=== PATIENT | male | born 1940 | race Caucasian/White ===

== ENCOUNTER 2023-05-14 13:10 | Outpatient (CLI) | payer MEDICARE, BC, SELFPAY ==
--- NOTE | 2023-05-14 14:36 | W.ANESCHARGE ---
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
--- NOTE | 2023-05-14 15:11 | W.ANESCHARGE ---
Anesthesia Charges Start Date/Time Anesthesia Start Date: 05/14/23 Anesthesia Start Time: 14:12 Stop Date/Time Anesthesia Stop Date: 05/14/23 Anesthesia Stop Time: 14:37 Summary Extremes of Age - Over 70 or under 1: MDA
== END 2023-05-14 13:11 | disposition home or self-care (01) ==
LOC: OP CLINIC 13:13
PROVIDERS: PCP Family Medicine; Visit Provider Internal Medicine Gastroenterology
DX: Z12.11 Encounter for screening for malignant neoplasm of colon (principal); K63.5 Polyp of colon; K57.30 Diverticulosis of large intestine without perforation or abscess without bleeding; Z86.010 Personal history of colon polyps
CPT/HCPCS: 00811; 45385; 88305; 99100; J2704

== ENCOUNTER 2023-08-27 06:20 | Day surgery (SDC) | payer MEDICARE, BC, SELFPAY ==
--- OUTSIDE RECORDS SUMMARY | 2023-08-27 06:24 | XMS_ITS | Clinical Summary ---
Author Name Unknown Organization [employer] [facility] Address [place], [place] [address] Care Team Providers Care Shorthand Reporter Name Role Phone Cyrus Guevara MD Primary Care Provider [phone] Allergies No known active allergies Medications Medication Sig Dispensed Refills Start Date End Date Status aspirin enteric coated 81 mg tablet Three tabs daily 0 3 Active acetaminophen SR (Tylenol 8 Hour) 650 mg Extended-Release tablet Take 1 Tablet (650 mg) by mouth every 8 hours if needed. Max acetaminophen dose: 4000mg in 24 hrs. 0 1 Active allopurinoL (ZYLOPRIM) 100 mg tabletIndications:C hronic gout of foot, unspecified cause, unspecified laterality Take 2 Tablets (200 mg) by mouth once daily. 180 Tablet 3 3 Active carvediloL (COREG) 3.125 mg tabletIndications:O ther cardiomyopathy (HC) Take 3 Tablets (9.375 mg) by mouth two times daily with meals. 540 Tablet 3 3 Active lisinopriL (PRINIVIL; ZESTRIL) 2.5 mg tabletIndications:E ssential hypertension Take 1 Tablet (2.5 mg) by mouth once daily. 90 Tablet 3 3 Active simvastatin (ZOCOR) 20 mg tabletIndications:O ther cardiomyopathy (HC) Take 1 Tablet (20 mg) by mouth at bedtime. 90 Tablet 3 3 Active ferrous sulfate, 65 mg elemental, tabletIndications:O ther iron deficiency anemia Take 1 Tablet (325 mg) by mouth once daily with a meal. Take with supper. 90 Tablet 3 3 Active tamsulosin (FLOMAX) 0.4 mg capsuleIndications: BPH without urinary obstruction Take 2 Capsules (0.8 mg) by mouth once daily after a meal. 180 Capsule 3 3 Active polyethylene glycol-electrolyte (GOLYTELY) 236-22.74-6.74 -5.86 gram suspensionIndicatio ns:Encounter for screening colonoscopy Drink 2 liters the day before the procedure and 2 liters 6 hours prior to procedure 4000 mL 0 3 07/31/20 23 Discontinu ed(*Patien t states no longer taking) Active Problems Problem Noted Date Diagnosed Date BPH without urinary obstruction 07/12/2023 ICD (implantable cardioverte r-defibrillator) battery depletion with elective replacement indicator status beginning on 02/28/2021 04/12/2021 S/P dual chamber biventricul ar implantable cardioverter defibrillator generator change with downgrade to dual chamber biventricular permanent pacemaker on 04/12/2021 04/12/2021 Nephrolithiasis 01/11/2015 Overview: Asymptomatic, incidentally noted on CT scabn. Diverticulosis of sigmoid colon 01/11/2015 Chronic systolic CHF (conges tive heart failure), NYHA class 2 09/04/2013 Overview: Due for an echocardiogram in 07/2024. 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 As of 12/20/2022 he reports he is completely recovered. His strength and everything is back to normal for him. Gout, unspecified 04/07/2010 Colon polyp 01/11/2010 Overview: Colonoscopy 12/2009 polyp repeat in 3 years Colonoscopy 01/2013 normal repeat in 5 years Colonoscopy 02/2018 polyp, repeat in 5 years Colonoscopy 05/2023 3-TA, no follow up given age Unspecified essential hypertension 05/08/2007 Resolved Problems Problem Noted Date Diagnosed Date Resolved Date Other abnormal glucose 05/08/200710/27 Encounters Date Type Department Care Team Description 07/31/2023 10:00 AM WEIGHT REDUCTION SPECIALIST Preop Visit [facility] [address] [place] [address] Cyrus Guevara MD Preoperative Exam (1st MPJ fusion (left)/Hammertoe repair 2nd toe (left)/Dr. Britton/NHOS 08/27/2023) 07/31/2023 9:15 AM WEIGHT REDUCTION SPECIALIST Ancillary Procedure [facility] [address] [place] [address] 07/31/2023 Travel 07/25/2023 Telephone [facility] [id number] [place] [id number] Fermin Atkinson MD Results 07/12/2023 Telephone [facility] [address] [place] [address] Cyrus Guevara MD Medication Management (QUESTION ) 07/10/2023 Refill [facility] [address] [place] [address] Cyrus Guevara MD Refill Request (Tamsulosin) 06/20/2023 10:15 AM WEIGHT REDUCTION SPECIALIST Office Visit [facility] [address] [place] [address] Kilo Britton DPAndree Follow Up (Follow up left toe pain) 06/20/2023 Travel from Last 3 Months Immunizations Name Administration Dates Next Due AMB Influenza, IIV3 (Age >=3 years)(Flu Clinic Only) 05/31/2010,06/03/2008 Amb Influenza, Inact (High-d ose) (Flu Clinic Only) 05/11/2014 Amb Influenza, Inactivated A IIV4 (Age 65+ Years) Preserv Free 05/13/2020 COVID-19 Vaccine Spikevax (M oderna 50mcg/0.5mL) 12YO+ [id number] Formula PF 06/05/2023 COVID-19 vaccine (Confluent (Oblix / [employer])Bio NTech 30mcg/0.3mL) 12YO+ BIVALENT PF, MDV 05/03/2022 COVID-19 vaccine ([employer]Bio NTech 30mcg/0.3mL) 12YO+ JENNY-SUCROSE PF, MDV 01/28/2022 COVID-19 vaccine (Confluent (Oblix / Oracle)Bio NTech 30mcg/0.3mL) PF, MDV 06/09/2021,10/09/2020,09/18/2020 Influenza, High-dose Inactivated 05/02/2016,03/2015,05/11/2014 Influenza, IIV3 (Age 6-35 mos) 05/16/2011 Influenza, IIV3 (Age >=3 years) 05/13/20 13,05/07/2012,05/16/2011,2009,05/25/2009,06/03/2008,07/06/2007,1 09/01/2005 Influenza, Inactivated AIIV4 (Age 65+ Years) Preserv Free 04/27/2023,05/03/2022,04/22/2021 Influenza, Inactivated IIV3 (Age 65+ Years) Preserv Free 04/24/2019,05/09/2018,05/09/2017 Pneumococcal Poly,23-Valent (Pneumovax) 07/02/2006 Pneumococcal conj 13-Valent (Prevnar 13) 02/18/2016 Td (Age >=7 Years) 10/13/1996 Td, Preservative Free (age > = 7 Years) 07/11/2007 Tdap 10/31/2022,05/08/2012 Zoster (Shingrix-RZV, recombinant) 01/07/2021, Zoster (Zostavax-ZVL, live) 02/25/2017, 6 Family History Medical History Relation Name Comments Cancer-colon Brother age 74 Other Father at 89 old age Heart Disease Mother at 82 Diabetes Other none Relation Name Status Comments Brother Father (Age 89) Mother (Age 82) Other Social History Tobacco Use Types Packs/Day Years Used Date Smoking Tobacco: Former Smokeless Tobacco: Former Chew Quit: 09/04/2013 Tobacco Cessation:Counseling Given: Yes Alcohol Use Standard Drinks/Week Comments Not Currently 0 (1 standard drink = 0.6 oz pur e alcohol) PHQ-2 Answer Date Recorded PHQ-2 TOTAL SCORE 0 12/20/2022 Social Connections Answer Date Recorded Frequency of Communication with Friends and Fami ly Not on file 03/13/2023 Financial Resource Strain Answer Date R ecorded Difficulty of Paying Living Expenses 3 03/07/2022 Difficulty of Paying Living Expenses Not on file 03/07/2022 Food Insecurity Answer Date Recorded Worried About Running Out of Food in the Last Ye ar 1 03/07/2022 Transportation Needs Answer Date Record ed Lack of Transportation (Medical) 1 03/07/2022 Housing Stability Answer Date Recorded Unable to Pay for Housing in the Last Year 1 03/07/2022 Sex and Gender Information Value Date Recorded Sex Assigned at Not on file Gender Identity Not on file Sexual Orientation Not on file Obstetrics History Last Filed Vital Signs Vital Sign Reading Time Taken Comments Blood Pressure 109/64 07/31/2023 9:31 AM WEIGHT REDUCTION SPECIALIST Pulse 61 07/31/2023 9:31 AM WEIGHT REDUCTION SPECIALIST Temperature 36.7 ??C (98 ??F) 07/31/2023 9:31 AM WEIGHT REDUCTION SPECIALIST Respiratory Rate 18 04/12/2021 1:30 PM CDT Oxygen Saturation 97% 07/31/2023 9:31 AM WEIGHT REDUCTION SPECIALIST Inhaled Oxygen Concentration - - Weight 79.2 kg (174 lb 11.2 oz) 07/31/2023 9:31 AM WEIGHT REDUCTION SPECIALIST Height 160 cm (5' 3) 07/31/2023 9:31 AM WEIGHT REDUCTION SPECIALIST Body Mass Index 30.95 07/31/2023 9:31 AM WEIGHT REDUCTION SPECIALIST Plan of Treatment Upcoming Encounters Date Type Department Care Team (Late st Contact Info) Description 08/27/2023 9:30 AM WEIGHT REDUCTION SPECIALIST Office Visit [facility] [address] [place] [phone] Kilo Britton, JAVI [address] [place] [address] 08/29/2023 10:00 AM WEIGHT REDUCTION SPECIALIST Office Visit [facility] [address] [place] [address] Kilo Britton DPM [address] [place] [address] 09/12/2023 10:00 AM WEIGHT REDUCTION SPECIALIST Office Visit [facility] [address] [place] [address] Kilo Britton DPM [address] [place] [address] 10/10/2023 10:00 AM WEIGHT REDUCTION SPECIALIST Office Visit [facility] [place] [address] Kilo Britton DPM [address] [place] [address] 11/22/2023 Cardiac Device Check [facility] [phone] 12/19/2023 8:00 AM CDT Orders Only [facility] [place] [address] Adelita, Joycelyn 12/26/2023 8:00 AM CDT Office Visit [facility] [place] [address] Cyrus Guevara MD [address] [place] [address] Health Maintenance Due Date Last Done Comments Medicare Wellness for age 65+ 11/07/2022, 10/27/2020, 03/14/2017, Additional history exists Depression screening for age 12+ 12/21/2023 12/20/2022, 12/19/2022, 11/07/2021, Additional history exists BMI (ht and wt on same day) for age 18+ 07/31/2024 07/31/2023, 05/22/2022, 11/07/2021, Additional history exists Tetanus booster 10/31/2032 10/31/2022, 04/14, 07/11/2007, Additional history exists Pneumococcal series for age 65+ Completed 6, 07/02/2006 Zoster (shingles) series for age 50+ Completed 01/07/2021, 10/27/2020, 02/25/2017, Additional history exists Tdap Completed 10/31/2022, 05/08/2012 Influenza for age 65+ Completed 04/27/2023 , 05/03/2022, 04/22/2021, Additional history exists COVID-19 vaccine series Completed 06/05/20, 05/03/2022, 01/28/2022, Additional history exists Medical Devices Implanted Type Area Utility Operator Yarn Device Identifier Shelf Expiration Date Model / Serial / Lot Chemical Dependency Counselor-D-09/04/2013 Implanted:2013 by Lucian Sequeira MD (Quantity not on file) ONCOLOGY NURSE-D [employer] [id number] / [id number] / Procedures Procedure Name Priority Date/Time Associated Diagnosis Comments CBC WITH AUTO DIFFERENTIAL Routine 07/31/2023 10:42 AM WEIGHT REDUCTION SPECIALIST Preoperative general physical examination CBC WITH AUTO DIFFERENTIAL Routine 07/31/2023 10:42 AM WEIGHT REDUCTION SPECIALIST Preoperative general physical examination BASIC METABOLIC PANEL Routine 07/31/2023 10:42 AM WEIGHT REDUCTION SPECIALIST Chronic systolic CHF (congestive heart failure), NYHA class 2 (HC) XR FOOT 3 VIEWS LEFT Routine 07/31/2023 9:20 AM WEIGHT REDUCTION SPECIALIST 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 from Last 3 Months Results * (ABNORMAL) CBC WITH AUTO DIFFERENTIAL (07/31/2023 10:42 AM WEIGHT REDUCTION SPECIALIST) Pathologist [facility] WHITE BLOOD COUNT 7.5 4.5 - 11.0 thou/cu mm 07/31/2023 10:47 AM WEIGHT REDUCTION SPECIALIST [facility] RED BLOOD COUNT 3.54(L) 4.30 - 5.90 mil/cu mm 07/31/2023 10:47 AM [facility] HEMOGLOBIN 11.6(L) 13.5 - 17.5 g/dL 07/31/2023 10:47 AM [facility] HEMATOCRIT 36.0(L) 37.0 - 53.0 % 07/31/2023 10:47 AM [facility] MCV 102(H) 80 - 100 fL 07/31/2023 10:47 AM [facility] MCH 32.8 26.0 - 34.0 pg 07/31/2023 10:47 AM [facility] MCHC 32.2 32.0 - 36.0 g/dL 07/31/2023 10:47 AM [facility] RDW 12.6 11.5 - 15.5 % 07/31/2023 10:47 AM [facility] PLATELET COUNT 247 140 - 440 thou/cu mm 07/31/2023 10:47 AM [facility] MPV 8.9 6.5 - 11.0 fL 07/31/2023 10:47 AM [facility] % NEUT 66.2 % 07/31/2023 10:47 AM [facility] % LYMPH 19.6 % 07/31/2023 10:47 AM [facility] % MONO 7.3 % 07/31/2023 10:47 AM [facility] % EOS 6.5 % 07/31/2023 10:47 AM [facility] % BASO 0.4 % 07/31/2023 10:47 AM [facility] ABSOLUTE NEUTROPHILS 5.0 1.7 - 7.0 thou/cu mm 07/31/2023 10:47 AM [facility] ABSOLUTE LYMPHOCYTES 1.5 0.9 - 2.9 thou/cu mm 07/31/2023 10:47 AM [facility] ABSOLUTE MONOCYTES 0.6 <0.9 thou/cu mm 07/31/2023 10:47 AM [facility] ABSOLUTE EOSINOPHILS 0.5(H) <0.5 thou/cu mm 07/31/2023 10:47 AM [facility] ABSOLUTE BASOPHILS 0.0 <0.3 thou/cu mm 07/31/2023 10:47 AM [facility] Blood BLOOD SPECIMEN / Unknown Venipuncture / Unknown 07/31/2023 10:42 AM WEIGHT REDUCTION SPECIALIST 07/31/2023 10:42 AM WEIGHT REDUCTION SPECIALIST Cyrus Guevara MD HEMATOLOGY [facility] [address] [place] [address], [place] [phone] * (ABNORMAL) BASIC METABOLIC PANEL (07/31/2023 10:42 AM WEIGHT REDUCTION SPECIALIST) SODIUM 142 136 - 145 mmol/L 07/31/2023 9:08 PM [facility] POTASSIUM 4.9 3.5 - 5.1 mmol/L 07/31/2023 9:08 PM [facility] CHLORIDE 109(H) 98 - 107 mmol/L 07/31/2023 9:08 PM [facility] CO2,TOTAL 26 22 - 29 mmol/L 07/31/2023 9:08 PM [facility] ANION GAP 7 5 - 18 07/31/2023 9:08 PM [facility] GLUCOSE 108(H) 70 - 99 mg/dL 07/31/2023 9:08 PM [facility] CALCIUM 9.5 8.8 - 10.2 mg/dL 07/31/2023 9:08 PM [facility] BUN 25(H) 8 - 23 mg/dL 07/31/2023 9:08 PM [facility] CREATININE 1.52(H) 0.70 - 1.20 mg/dL 07/31/2023 9:08 PM [facility] BUN/CREAT RATIO 16 10 - 20 9:08 PM [facility] eGFR 45(L) >90 mL/min/1.7 3m2 07/31/2023 9:08 PM [facility] Comment:As of 2021, eG FR is calculated by the CKD-EPI creatinine equation without race adjustment. ??eGFR can be influenced by muscle mass, exercise, and diet. ??The reported eGFR is an estimation only and is only applicable if the renal function is stable. Blood BLOOD SPECIMEN / Unknown Venipuncture / Unknown 07/31/2023 10:42 AM WEIGHT REDUCTION SPECIALIST 07/31/2023 10:42 AM WEIGHT REDUCTION SPECIALIST Cyrus Guevara MD CHEMISTRY [facility] [address] [place] [address], [place] * XR FOOT 3 VIEWS LEFT (07/31/2023 9:20 AM WEIGHT REDUCTION SPECIALIST) Anatomical Region Laterality Modality FEET, FOOT L Computed Radiogr aphy 07/31/2023 10:3 8 AM WEIGHT REDUCTION SPECIALIST Narrative 07/31/2023 10:38 AM WEIGHT REDUCTION SPECIALIST For Patients: ??As a result of the Cures Act, medical imaging exams and procedure reports are released immediately into your electronic medical record. ??You may view this report before your referring provider. ??If you have questions, please contact your health care provider. INDICATION: 83 year-old male. Hallux valgus of the left foot. 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 TECHNIQUE: Four views of the left foot. FINDINGS: Hallux valgus deformity left 1st metatarsal head with bunion deformity. The 1st and 2nd toes appear to cross over each other and this may be a chronic position. Please correlate clinically. No acute fracture dislocation. No evidence for erosive change. No significant calcaneal spurring. IMPRESSION : Bunion deformity and hallux valgus deformity 1st MTP joint. 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 Dictated by Schuyler Davalos MD @ Jul 31 2023 10:38AM (Electronically Signed) ?? Procedure Note Schuyler Davalos MD - 07/31/2023 For Patients: As a result of the Cures Act, medical imagingexams and procedure reports are released immediately into your electronicmedical record. You may view this report before your referring provider.If you have questions, please contact your health care provider. INDICATION: 83 year-old male. Hallux valgus of the left foot. Crossover toe deformityof the left foot. TECHNIQUE: Four views of the left foot. FINDINGS: Hallux valgus deformity left 1st metatarsal head with bunion deformity.The 1st and 2nd toes appear to cross over each other and this may be achronic position. Please correlate clinically. No acute fracturedislocation. No evidence for erosive change. No significant calcanealspurring. IMPRESSION : Bunion deformity and hallux valgus deformity 1st MTP joint. Crossoverdeformity of the 1st and 2nd toes. Dictated by Schuyler Davalos MD @ Jul 31 2023 10:38AM (Electronically Signed) Kilo Britton DPM GENERAL IMAGING from Last 3 Months Advance Directives Latest Code Status on File Code Status Date Activated Date Inactivated Comments Full Code 04/12/2021 10:18 AM 04/12/2021 8:03 PM Question Answer Comments Code Status Discussion: Not Discussed Code Status History Code Status Date Activated Date Inactivated Comments Full Code 09/04/2013 9:54 AM 09/05/2013 1:12 PM Care Teams Shorthand Reporter Relationship Specialty Start Date End Date [place] [address] PCP - General Family Practice 08/01/21
[2023-08-27] MEDS: LACTATED RINGERS 1000 ML 1,000 ML 100 ML IV (06:45)
[2023-08-27] MEDS: SODIUM CHLORIDE 0.9 % (FLUSH) 10 ML SYRINGE IVF (06:50)
[2023-08-27 06:54] VITALS: BP 122/57; PULSE 59; RESP 16; TEMP 36.1; O2SAT 96
[2023-08-27 06:56] VITALS: BMI 30.9
--- NOTE | 2023-08-27 07:15 | CRLHL7_ITS ---
For Patients: As a result of the Cures Act, medical imaging exams and procedure reports are released immediately into your electronic medical record. You may view this report before your referring provider. If you have questions, please contact your health care provider. INDICATION: Left foot ORIF. TECHNIQUE: Three spot images of the great toe submitted. 6.6 seconds fluoro time provided. FINDINGS: Images demonstrate 1st TMT fusion with plate and screws. Dictated by Xavi Mejia MD @ 08/28/2023 10:02:58 AM (Electronically Signed)
[2023-08-27] MEDS: BUPIVACAINE 0.5% 30 ML INJECTION (07:30)
[2023-08-27] MEDS: CEFAZOLIN 2 GM INJ IVP (07:34)
[2023-08-27 09:10] VITALS: BP 101/56; PULSE 66; RESP 16; TEMP 36.4; O2SAT 97
--- NOTE | 2023-08-27 09:12 | P.ANES_ITS ---
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
--- NOTE | 2023-08-27 09:23 | W.ANESCHARGE ---
Anesthesia Charges Start Date/Time Anesthesia Start Date: 08/27/23 Anesthesia Start Time: 07:20 Stop Date/Time Anesthesia Stop Date: 08/27/23 Anesthesia Stop Time: 09:10 Summary Extremes of Age - Over 70 or under 1: MDA
[2023-08-27 09:30] VITALS: BP 129/52; PULSE 60; RESP 16; O2SAT 99
[2023-08-27 09:45] VITALS: BP 109/56; PULSE 63; RESP 16; O2SAT 98
[2023-08-27 10:00] VITALS: BP 136/72; PULSE 65; RESP 16; TEMP 36.4; O2SAT 98
--- NOTE | 2023-08-27 10:25 | REH.PT ---
Pt trained on use of 2ww and maintain heel wt bearing on L LE. Pt able to demo ind gait with 2ww. Instructed on stair amb with step to gait pattern with pt and spouse verbalizing understanding. Fitted and issued a 2ww for home use. No charge.
--- NOTE | 2023-08-27 13:57 | P.GSOP_ITS ---
Operative Note Date of procedure: 08/27/23 Pre-op diagnosis: 1. Hallux valgus bunion left 2. Hammertoe left 2nd digit Post-op diagnosis: 1. Hallux valgus bunion left 2. 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 First MPJ fusion left 2. Ostectomy 2nd digit left Indications: Patient has longstanding painful great toe and 2nd toe. Great toe is putting significant pressure on the 2nd toe causing sores and pain. He has elected surgical care today. Reviewed the procedure, recovery, expectation of potential complications. These include but are not limited to: Poor wound healing, infection, under correction, over-correction, nonunion, delayed union, malunion, hardware irritation, hardware failure, nerve injury, potential need for future surgery, deep venous thrombosis, pulmonary embolism and possible . He understands risks written consent was obtained. Procedure Description: After discussing the risks and benefits of the procedure, the patient signed informed consent.? The operative site was marked and the patient was brought to the operating room and placed on the operating table in supine position.? Care was taken to pad the patient's pressure points.?? The patient was then placed under MAC anesthesia.??30 mL 0.5% Marcaine plain injected into the left foot. The operative site was then prepped and draped in the usual sterile fashion.? A time-out was then performed. Linear incisions made over the 1st metatarsophalangeal joint. Incision was carried down through skin subcutaneous tissue. Linear capsular incision was then made and the capsular and periosteal tissues reflected away from the 1st metatarsal head proximal phalangeal base. Significant tophi seen throughout the 1st MPJ and within the joint capsule. The guidepin was placed in the 1st metatarsal head. 18 mm Reamer was used to remove the cartilage and subchondral bone. Tape was removed placed the base of proximal phalanx a corresponding Reamer used to remove the cartilage and subchondral bone. Wound was thoroughly irrigated with sterile saline. Opposing fusion surfaces fenestrated with K- wire. The simulated weight-bearing performed in the hallux aligned in the optimal position and temporally fixated with K-wire. C-arm confirmed position. Guide pin placed from distal medial to proximal lateral and a 3.0 mm cannulated headless screw placed using standard technique. Dorsal 6 hole plate was then applied with 3 locking 3.0 mm screws distal and 1 proximal. An additional nonlocking 3.0 mm screw placed proximal. Fusion site was remodeled with a rotary bur. Wound was irrigated normal sterile saline. Joint capsule was repaired with 3-0 Vicryl. Subcutaneous tissues reapproximated with 4-0 Monocryl and skin closed 4-0 Prolene. Linear incision made over the dorsal medial PIPJ 2nd toe. Incision carried down through skin subcutaneous tissues. Linear incision made through the lateral joint capsule. Rotary bur was then used to remove the medial flare of the proximal phalanx and middle phalanx. Wound irrigated normal sterile saline. Capsule tissue repaired. Skin closed with 4-0 Prolene. Sterile dressings were then applied. He is placed in a well-padded cam boot. Tourniquets released normal capillary fill time returned to all digits. The patient was then woken and transported to the recovery area in stable condition. The patient tolerated the procedure well. He will be discharged per same-day surgery protocol. Weightbearing as tolerated to the heel in the Cam boot with crutch or walker assistance. He is given oxycodone for pain. He will start aspirin therapy tomorrow. Follow-up in 2 days. Complications: None apparent Findings: Tophi within the 1st MPJ. Implants: Arthrex 1st MPJ fusion plate x1, 3.0 mm locking screws times 4 and nonlocking x1, 3.0 mm cannulated headless screw x1 Anesthesia: MAC Surgeon: Kilo Britton DPM Estimated blood loss (mL): 5 Condition: stable Disposition: same day
== END 2023-08-27 10:30 | disposition home or self-care (01) ==
PROVIDERS: PCP Family Medicine; Visit Provider Podiatrist
PROC: (CPT 28740; principal; 2023-08-27 07:15)
PROC: (CPT 28285; 2023-08-27 07:15)
DX: M20.12 Hallux valgus (acquired), left foot (principal); M21.612 Bunion of left foot; M20.42 Other hammer toe(s) (acquired), left foot; M20.5X2 Other deformities of toe(s) (acquired), left foot
CPT/HCPCS: 28750; 28124; 01480; 73620; 76000; 99100; A4580; C1713; J0665; J0690; J1100; J2405; J2704; J3010; J7120

== ENCOUNTER 2023-09-17 12:48 | Outpatient (CLI) | payer MEDICARE, BC, SELFPAY ==
--- OUTSIDE RECORDS SUMMARY | 2023-09-17 12:51 | XMS_ITS | Clinical Summary ---
Author Name Unknown Organization [facility] Address [place], [place] [address] Care Team Providers Care An Employee Sponsor Or Advocate And Name Role Phone Cyrus Gueavra MD Primary Care Provider [phone] Allergies No known active allergies Medications Medication [...] a meal. 180 Capsule 3 3 Active oxyCODONE (ROXICODONE) 5 mg immediate release tabletIndications:H allux valgus of left foot Take 1-2 Tablets (5-10 mg) by mouth every 4 hours if needed for Pain. 20 Tablet 0 4 08/30/19 24 Discontinu ed(Reorder (E-cancel not sent)) oxyCODONE (ROXICODONE) 5 mg immediate release tabletIndications:H allux valgus of left foot Take 1-2 Tablets (5-10 mg) by mouth every 4 hours if needed for Pain. 20 Tablet 0 4 09/05/19 24 Discontinu ed(Reorder (E-cancel not sent)) oxyCODONE (ROXICODONE) 5 mg immediate release tabletIndications:H allux valgus of left foot Take 1 Tablet (5 mg) by mouth every 4 hours if needed for Pain. 20 Tablet 0 4 09/12/19 24 Discontinu ed(*Patien t states no longer taking) [...] Encounters Date Type Department Care Team Description 09/13/2023 Telephone [facility] [address] [place] [address] Anton Dumont MD Endoscopy 09/12/2023 11:05 AM APPLIED PSYCHOLOGY PROFESSOR Office Visit [facility] [address] [place] [address] Angelica Lee MD Diarrhea (Occasional diarrhea with dark stools-started 2-3 months ago) 09/12/2023 10:00 AM APPLIED PSYCHOLOGY PROFESSOR Office Visit [facility] [address] [place] [address] Kilo Britton DPM Post-op (Left FOOT, 2 week post op visit, DOS 08/27/23) 09/12/2023 Telephone [facility] [address] [place] [address] Cyrus Guevara MD Questions 09/12/2023 Travel 09/05/2023 Refill [facility] [address] [place] [address] Cyrus Guevara MD Refill Request (oxycodone) 09/04/2023 Nurse Triage [facility] [address] [place] [address] Cyrus Guevara MD Meldaniel 08/30/2023 Telephone [facility] [address] [place] [address] Kilo Britton DPM Prior Authorization (oxyCODONE (ROXICODONE) 5 mg immediate release tablet (DRUG APPROVED/DAILY QTY LIMIT DENIED)) 08/30/2023 Telephone [facility] [address] [place] [address] Cyrus Guevara MD Prior Authorization (oxyCODONE (ROXICODONE) 5 mg immediate release tablet/) 08/30/2023 Refill [facility] [address] [place] [address] Kilo Britton DPM Refill Request (oxyCODONE (ROXICODONE) 5 mg immediate release tablet) 08/29/2023 10:15 AM APPLIED PSYCHOLOGY PROFESSOR Ancillary Procedure [facility] [address] [place] [address] 08/29/2023 10:00 AM APPLIED PSYCHOLOGY PROFESSOR Office Visit [facility] [address] [place] [address] Kilo Britton DPM Foot Problem (Left foot, DOS 08/27/22, initial post op) 08/29/2023 Travel 08/28/2023 Telephone [facility] [address] [place] [address] Kilo Britton DPM Surgical Followup 08/27/2023 9:30 AM APPLIED PSYCHOLOGY PROFESSOR Office Visit [facility] [address] [place] [address] Kilo Britton DPM Surgery Scheduled 08/27/2023 Orders Only [facility] Scanner 1 scan: (1-Ord) HEYDI, FOOT LT 2V, 08/27/2023 08/27/2023 Orders Only [facility] Scanner 1 scan: (1-Ord) HEYDI, XT FOOT LT 2V, 08/27/2023 08/27/2023 Orders Only [facility] Scanner 1 scan: (1-Ord) FIRST MPJ FUSION /[place]/202307/31/2023 10:00 AM APPLIED PSYCHOLOGY PROFESSOR Preop Visit [facility] [address] [place] [address] Cyrus Guevara MD Preoperative Exam (1st MPJ fusion (left)/Hammertoe repair 2nd toe (left)/Dr. Britton/INOS 08/27/2023) 07/31/2023 9:15 AM APPLIED PSYCHOLOGY PROFESSOR Ancillary Procedure [facility] [address] [place] [address] 07/31/2023 Travel 07/25/2023 Telephone [facility] [address] [place] [address] Fermin Atkinson MD Results 07/12/2023 Telephone [facility] [address] [place] [address] Cyrus Guevara MD Medication Management (QUESTION ) 07/10/2023 Refill [facility] [address] [place] [address] Cyrus Guevara MD Refill Request (Tamsulosin) 06/20/2023 10:15 AM APPLIED PSYCHOLOGY PROFESSOR Office Visit [facility] [address] [place] [address] Kilo Britton, DPM Follow Up (Follow up left toe pain) 06/20/2023 Travel from Last 3 Months Immunizations Name Administration Dates Next Due AMB Influenza, IIV3 (Age >=3 years)(Flu Clinic Only) 05/31/2010,06/03/2008 Amb Influenza, Inact (High-d ose) (Flu Clinic Only) 05/11/2014 Amb Influenza, Inactivated A IIV4 (Age 65+ Years) Preserv Free 05/13/2020 COVID-19 Vaccine Spikevax (M oderna 50mcg/0.5mL) 12YO+ [id number] Formula PF 06/05/2023 COVID-19 vaccine (Pfizer-Bio NTech 30mcg/0.3mL) 12YO+ BIVALENT PF, MDV 05/03/2022 COVID-19 vaccine (Pfizer-Bio NTech 30mcg/0.3mL) 12YO+ JENNY-SUCROSE PF, MDV 01/28/2022 COVID-19 vaccine (LanyonBio NTech 30mcg/0.3mL) PF, MDV 06/09/2021,10/09/2020,09/18/2020 Influenza, High-dose [...] Sign Reading Time Taken Comments Blood Pressure 129/80 09/12/2023 11:08 AM APPLIED PSYCHOLOGY PROFESSOR Pulse 61 09/12/2023 11:08 AM APPLIED PSYCHOLOGY PROFESSOR Temperature 36.7 ??C (98.1 ??F) 09/12/2023 1 0:11 AM APPLIED PSYCHOLOGY PROFESSOR Respiratory Rate 18 04/12/2021 1:30 PM CDT Oxygen Saturation 99% 09/12/2023 11: 08 AM APPLIED PSYCHOLOGY PROFESSOR Inhaled Oxygen Concentration - - Weight 79.2 kg (174 lb 11.2 oz) 07/31/2023 9:31 AM APPLIED PSYCHOLOGY PROFESSOR Height 160 cm (5' 3) 07/31/2023 9:31 AM APPLIED PSYCHOLOGY PROFESSOR Body Mass Index 30.95 07/31/2023 9:31 AM APPLIED PSYCHOLOGY PROFESSOR Plan of Treatment Upcoming Encounters Date Type Department Care Team (Late st Contact Info) Description 09/17/2023 1:15 PM APPLIED PSYCHOLOGY PROFESSOR Procedure Only [facility] [address] [place] [address] Anton Dumont MD [address] [place] [address] Arrived 10/03/2023 1:10 PM APPLIED PSYCHOLOGY PROFESSOR Office Visit [facility] [address] [place] [address] Cyrus Guevara MD [address] [place] [address] 10/10/2023 10:00 AM APPLIED PSYCHOLOGY PROFESSOR Office Visit [facility] [address] [place] [address] Kilo Britton DPM [address] [place] [address] 11/22/2023 Cardiac Device Check [facility] [phone] 12/03/2023 8:30 AM CDT Office Visit [facility] [address] [place] [address] Anton Dumont MD [address] [place] [address] Health Maintenance Due Date Last Done Comments Medicare Wellness for age 65+ 11/08/2022, 10/27/2020, 03/14/2017, Additional history exists Depression screening [...] history exists Medical Devices Implanted Type Area Project Management Engineer Device Identifier Shelf Expiration Date Model / Serial / Lot [employer] 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-D-09/04/2013 Implanted:2013 by Lucian Sequeira MD (Quantity not on file) SUTURE GAUGER-D Medtronic [id number] / [id number] / Procedures Procedure Name Priority Date/Time Associated Diagnosis Comments ESOPHAGOGASTRODUODENOSCOPY AIXA 09/17 8:07 AM APPLIED PSYCHOLOGY PROFESSOR Melena Stomach upset ALT (SGPT) Add On 09/12/2023 11:50 AM APPLIED PSYCHOLOGY PROFESSOR Idiopathic gout, unspecified chronicity, unspecified site LIPID PANEL W REFLEX MEASURE D LDL Add On 09/12/2023 11:50 AM APPLIED PSYCHOLOGY PROFESSOR Unspecified essential hypertension URIC ACID Add On 09/12/2023 11:50 AM APPLIED PSYCHOLOGY PROFESSOR Idiopathic gout, unspecified chronicity, unspecified site CBC WITH AUTO DIFFERENTIAL Routine 09/12 11:50 AM APPLIED PSYCHOLOGY PROFESSOR Melena Stomach upset BASIC METABOLIC PANEL Routine 09/12/2023 11:50 AM APPLIED PSYCHOLOGY PROFESSOR Melena Stomach upset CBC WITH AUTO DIFFERENTIAL Routine 09/12 11:50 AM APPLIED PSYCHOLOGY PROFESSOR Melena Stomach upset XR FOOT 3 VIEWS LEFT Routine 08/29/2023 10:20 AM APPLIED PSYCHOLOGY PROFESSOR S/P foot surgery, left SCAN-RADIOLOGY REPORT 08/27/2023 12:00 AM APPLIED PSYCHOLOGY PROFESSOR SCAN-ULTRASOUND REPORT 12:00 AM APPLIED PSYCHOLOGY PROFESSOR SCAN-OPERATIVE/PROCEDURE REPORT 08/27/2023 12:00 AM APPLIED PSYCHOLOGY PROFESSOR CBC WITH AUTO DIFFERENTIAL Routine 07/31 10:42 AM APPLIED PSYCHOLOGY PROFESSOR Preoperative general physical examination CBC WITH AUTO DIFFERENTIAL Routine 07/31 10:42 AM APPLIED PSYCHOLOGY PROFESSOR Preoperative general physical examination BASIC METABOLIC PANEL Routine 07/31/2023 10:42 AM APPLIED PSYCHOLOGY PROFESSOR Chronic systolic CHF (congestive heart failure), NYHA class 2 (HC) XR FOOT 3 VIEWS LEFT Routine 07/31/2023 9:20 AM APPLIED PSYCHOLOGY PROFESSOR 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 WHITE BLOOD COUNT 8.8 4.5 - 11.0 thou/cu mm 09/12/2023 12:01 PM [facility] RED BLOOD COUNT 3.04(L) 4.30 - 5.90 mil/cu mm 09/12/2023 12:01 PM [facility] HEMOGLOBIN 9.8(L) 13.5 - 17.5 g/dL 09/12/2023 12:01 PM [facility] HEMATOCRIT 31.1(L) 37.0 - 53.0 % 09/12/2023 12:01 PM [facility] MCV 102(H) 80 - 100 fL 09/12/2023 12:01 PM [facility] MCH 32.2 26.0 - 34.0 pg 09/12/2023 12:01 PM [facility] MCHC 31.5(L) 32.0 - 36.0 g/dL 09/12/2023 12:01 PM [facility] RDW 12.9 11.5 - 15.5 % 09/12/2023 12:01 PM [facility] PLATELET COUNT 443(H) 140 - 440 thou/cu mm 09/12/2023 12:01 PM [facility] MPV 8.7 6.5 - 11.0 fL 09/12/2023 12:01 PM [facility] % NEUT 68.7 % 09/12/2023 12:01 PM [facility] % LYMPH 18.0 % 09/12/2023 12:01 PM [facility] % MONO 6.8 % 09/12/2023 12:01 PM [facility] % EOS 5.9 % 09/12/2023 12:01 PM [facility] % BASO 0.6 % 09/12/2023 12:01 PM [facility] ABSOLUTE NEUTROPHILS 6.1 1.7 - 7.0 thou/cu mm 09/12/2023 12:01 PM [facility] ABSOLUTE LYMPHOCYTES 1.6 0.9 - 2.9 thou/cu mm 09/12/2023 12:01 PM [facility] ABSOLUTE MONOCYTES 0.6 <0.9 thou/cu mm 09/12/2023 12:01 PM [facility] ABSOLUTE EOSINOPHILS 0.5(H) <0.5 thou/cu mm 09/12/2023 12:01 PM [facility] ABSOLUTE BASOPHILS 0.1 <0.3 thou/cu mm 09/12/2023 12:01 PM [facility] Blood BLOOD SPECIMEN / Unknown Venipuncture / Unknown 09/12/2023 11:50 AM APPLIED PSYCHOLOGY PROFESSOR 09/12/2023 11:53 AM [facility] Angelica Lee MD HEMATOLOGY [facility] [address] [place] [address], * LIPID PANEL W REFLEX MEASURED LDL (09/12/2023 11:50 AM APPLIED PSYCHOLOGY PROFESSOR) CHOLESTEROL,TOTAL 128 100 - 199 mg/dL 09/13/2023 3:35 PM [facility] Comment: Cholesterol, Total Reference Ranges Desirable <200 mg/dL Borderline 200-239 mg/dL High >=240 mg/dL TRIGLYCERIDES 92 <150 mg/dL 09/13/2023 3:35 PM [facility] HDL CHOLESTEROL 53 >40 mg/dL 3:35 PM [facility] NON-HDL CHOLESTEROL 75 <145 mg/dl 09/13/2023 3:35 PM [facility] CHOL/HDL RATIO 2.42 <4.50 09/13/2023 3:35 PM [facility] LDL CHOLESTEROL 57 <=130 mg/dL 09/13/2023 3:35 PM APPLIED PSYCHOLOGY PROFESSOR [facility] VLDL CHOLESTEROL 18 <=30 mg/dL 09/13/2023 3:35 PM APPLIED PSYCHOLOGY PROFESSOR [facility] PROVIDER ORDERED STATUS RANDOM 09/13/2023 3:35 PM APPLIED PSYCHOLOGY PROFESSOR [facility] Blood BLOOD SPECIMEN / Unknown Venipuncture / Unknown 09/12/2023 11:50 AM APPLIED PSYCHOLOGY PROFESSOR 09/12/2023 11:53 AM APPLIED PSYCHOLOGY PROFESSOR Cyrus Guevara MD CHEMISTRY [facility] S[address]OUT [place] [address]IP [phone] [place] [address] [facility] [address] [place] [address] * (ABNORMAL) URIC ACID (09/12/2023 11:50 AM APPLIED PSYCHOLOGY PROFESSOR) URIC ACID 9.9(H) 3.4 - 7.0 mg/dL 09/13/2023 3:35 PM APPLIED PSYCHOLOGY PROFESSOR [facility] Blood BLOOD SPECIMEN / Unknown Venipuncture / Unknown 09/12/2023 11:50 AM APPLIED PSYCHOLOGY PROFESSOR 09/12/2023 11:53 AM APPLIED PSYCHOLOGY PROFESSOR Cyrus Guevara MD CHEMISTRY Performing Organization Address City/[facility]/ZIP Co de Phone Number [facility] [address] [address] [phone] [place] [address] * ALT (SGPT) (09/12/2023 11:50 AM APPLIED PSYCHOLOGY PROFESSOR) ALT (SGPT) 15 10 - 50 IU/L 09/13/2023 3:35 PM APPLIED PSYCHOLOGY PROFESSOR [facility] Blood BLOOD SPECIMEN / Unknown Venipuncture / Unknown 09/12/2023 11:50 AM APPLIED PSYCHOLOGY PROFESSOR 09/12/2023 11:53 AM APPLIED PSYCHOLOGY PROFESSOR Cyrus Guevara MD CHEMISTRY [facility] S[address]OUT [place] [address] [address] [address] [place] [address] * (ABNORMAL) BASIC METABOLIC PANEL (09/12/2023 11:50 AM APPLIED PSYCHOLOGY PROFESSOR) Only the most recent of2 resultswithin the time period is included. SODIUM 143 136 - 145 mmol/L 09/13/2023 3:35 PM [facility] POTASSIUM 4.9 3.5 - 5.1 mmol/L 09/13/2023 3:35 PM [facility] CHLORIDE 111(H) 98 - 107 mmol/L 09/13/2023 3:35 PM [facility] CO2,TOTAL 20(L) 22 - 29 mmol/L 09/13/2023 3:35 PM [facility] ANION GAP 12 5 - 18 09/13/2023 3:35 PM [facility] GLUCOSE 104(H) 70 - 99 mg/dL 09/13/2023 3:35 PM [facility] CALCIUM 9.6 8.8 - 10.2 mg/dL 09/13/2023 3:35 PM [facility] BUN 21 8 - 23 mg/dL 09/13/2023 3:35 PM [facility] CREATININE 1.45(H) 0.70 - 1.20 mg/dL 09/13/2023 3:35 PM [facility] BUN/CREAT RATIO 14 10 - 20 4 3:35 PM [facility] eGFR 48(L) >90 mL/min/1.7 3m2 09/13/2023 3:35 PM [facility] Comment:As of 2021, eG FR is calculated by the CKD-EPI creatinine equation without race adjustment. ??eGFR can be influenced by muscle mass, exercise, and diet. ??The reported eGFR is an estimation only and is only applicable if the renal function is stable. Blood BLOOD SPECIMEN / Unknown Venipuncture / Unknown 09/12/2023 11:50 AM APPLIED PSYCHOLOGY PROFESSOR 09/12/2023 11:53 AM APPLIED PSYCHOLOGY PROFESSOR Angelica Lee MD CHEMISTRY [facility] S[address]OUT [place] [address] [phone] [place] [address] * XR FOOT 3 VIEWS LEFT (08/29/2023 10:20 AM APPLIED PSYCHOLOGY PROFESSOR) Only the most recent of2 resultswithin the time period is included. Anatomical Region Laterality Modality FEET, FOOT L Computed Radiogr aphy 08/29/2023 3:04 PM APPLIED PSYCHOLOGY PROFESSOR Narrative 08/29/2023 3:04 PM APPLIED PSYCHOLOGY PROFESSOR For Patients: ??As a result of the Cures Act, medical imaging exams and procedure reports are released immediately into your electronic medical record. ??You may view this report before your referring provider. ??If you have questions, please contact your health care provider. Indication: Postop Technique: Left foot 3 views Comparison: 07/31/2023 Findings: Postop changes of 1st MTP fusion with intact hardware. Postop soft tissue swelling. Chronic changes at the 2nd toe PIP joint. No fracture. Vascular calcifications. Impression: Status post 1st MTP fusion with intact hardware. Dictated by Max Levy MD @ Aug 29 2023 ??3:04PM (Electronically Signed) ?? Procedure Note Max Levy MD - 08/29/2023 For Patients: As a result of the Cures Act, medical imagingexams and procedure reports are released immediately into your electronicmedical record. You may view this report before your referring provider.If you have questions, please contact your health care provider. Indication: Postop Technique: Left foot 3 views Comparison: 07/31/2023 Findings: Postop changes of 1st MTP fusion with intact hardware. Postop soft tissueswelling. Chronic changes at the 2nd toe PIP joint. No fracture. Vascularcalcifications. Impression: Status post 1st MTP fusion with intact hardware. Dictated by Max Levy MD @ Aug 29 2023 3:04PM (Electronically Signed) Kilo Britton DPM GENERAL IMAGING * SCAN-RADIOLOGY REPORT (08/27/2023 12:00 AM APPLIED PSYCHOLOGY PROFESSOR) Anatomical Region Laterality Modality Other Scanner OTHER * SCAN-OPERATIVE/PROCEDURE REPORT (08/27/2023 12:00 AM APPLIED PSYCHOLOGY PROFESSOR) Scanner OTHER * SCAN-ULTRASOUND REPORT (08/27/2023 12:00 AM APPLIED PSYCHOLOGY PROFESSOR) Anatomical Region Laterality Modality Other Scanner OTHER from Last 3 Months Advance Directives Latest Code Status on File Code Status Date Activated Date Inactivated Comments Full Code 04/12/2021 10:18 AM 04/12/2021 8:03 PM Question Answer Comments Code Status Discussion: Not Discussed Code Status History Code Status Date Activated Date Inactivated Comments Full Code 09/04/2013 9:54 AM 09/05/2013 1:12 PM Care Teams An Employee Sponsor Or Advocate And Relationship Specialty Start Date End Date Cyrus Guevara MD [place] [address] PCP - General Family Practice 08/01/21
--- NOTE | 2023-09-17 14:34 | W.ANESCHARGE ---
Anesthesia Charges Start Date/Time Anesthesia Start Date: 09/17/23 Anesthesia Start Time: 14:10 Stop Date/Time Anesthesia Stop Date: 09/17/23 Anesthesia Stop Time: 14:30 Summary Extremes of Age - Over 70 or under 1: [employer]ER
== END 2023-09-17 12:49 | disposition home or self-care (01) ==
LOC: OP CLINIC 12:49
PROVIDERS: PCP Family Medicine; Visit Provider Internal Medicine Gastroenterology
DX: K92.2 Gastrointestinal hemorrhage, unspecified (principal); K21.00 Gastro-esophageal reflux disease with esophagitis, without bleeding; K44.9 Diaphragmatic hernia without obstruction or gangrene; K22.10 Ulcer of esophagus without bleeding; K31.89 Other diseases of stomach and duodenum; D50.9 Iron deficiency anemia, unspecified; R10.13 Epigastric pain
CPT/HCPCS: 00731; 43239; 88305; 99100; J2704